=== PATIENT | female | born 1965 | race Caucasian/White ===

== ENCOUNTER 2016-06-13 20:37 | Emergency (ER) | payer BC, OTHER ==
[~2016-06-13] VITALS: Ht 167.6 cm; Wt 115.0 kg
[2016-06-13 20:44] VITALS: TEMP 36.9; Ht 167.6 cm; Wt 115.0 kg
[2016-06-13] MEDS ORDERED: SODIUM CHLORIDE 0.9% 1000ML 2,000 ML IV STA (21:02)
[2016-06-13 21:59] LABS: BASO % 0.1 %; BASO ABS # 0.01 K/uL (0-0.2); COMPLETE YES; EOS % 0.6 %; HEMATOCRIT 41.5 % (37-47); IG% 0.1 %; LYMPH % 31.8 %; LYMPH ABS # 2.25 K/uL (1.2-3.4); MEAN CELL VOLUME 90.4 fL (80-100); MEAN CORPUSCULAR HEMOGLOBIN 30.3 pg (25-34); MEAN CORPUSCULAR HGB CONC 33.5 g/dl (32-36); MEAN PLATELET VOLUME 12.9 fL (7.4-10.4); MONO % 12.4 %; PLATELET COUNT 164 K/uL (130-400); RED BLOOD COUNT 4.59 M/uL (4.2-5.4); WHITE BLOOD COUNT 7.07 K/uL (4.8-10.8)
[2016-06-13 22:15] LABS: ALT/SGPT 25 U/L (12-78); BLOOD UREA NITROGEN 4 mg/dl (7-18); BUN/CREATININE RATIO 4.9 (10-20); CARBON DIOXIDE 28 mmol/L (21-32); CHLORIDE 105 mmol/L (98-107); CREATININE 0.79 mg/dl (0.60-1.20); GLUCOSE 103 mg/dl (70-99); POTASSIUM 3.2 mmol/L (3.5-5.1); SODIUM 140 mmol/L (136-145)
[2016-06-13 22:18] LABS: ALKALINE PHOSPHATASE 82 U/L (45-117); AST/SGOT 20 U/L (15-37)
[2016-06-13 22:33] LABS: CALCIUM 9.1 mg/dl (8.5-10.1)
--- NOTE | 2016-06-13 22:47 | EMERGENCY ROOM VISIT NOTE ---
History First contact with patient: 20:53 Chief Complaint: DIARRHEA Stated Complaint: STOMACH BUG AND DIARRHEA History of Present Illness The patient is a 51 year old female who presents to the Emergency Room with complaints of profuse watery diarrhea for the past 4 days. The patient reports mild abdominal cramping. She denies any nausea or vomiting. She denies any recent foreign travel, consumption of undercooked foods or other sick contacts. She also denies any recent antibiotic use. The patient does work at the [employer], and cannot rule out the possibility of C. difficile diarrhea. She has had no fevers or chills. She denies any history of GI disease. She is status post cholecystectomy. She has noticed some mild central back discomfort, wondering if she may have injured her kidneys. She denies any chest pain, shortness of breath, sore throat or headache. She currently rates her discomfort a 6 out of 10. Review of Systems HEENT: Denies dizziness, visual problems, hearing loss, tinnitus. Denies difficulty swallowing or oral lesions. PULMONARY: Denies cough, shortness of breath, sputum production or hemoptysis. CARDIOVASCULAR: Denies chest pain, palpitations, dyspnea on exertion, orthopnea or peripheral edema. GASTROINTESTINAL: See history of present illness. GENITOURINARY: Denies dysuria, frequency, urgency or nocturia. NEUROLOGIC: Denies history of epilepsy, CVA, TIA or chronic headaches. MUSCULOSKELETAL: Denies history of joint tenderness/swelling. SKIN: Denies rashes or lesions. PSYCHIATRIC: Denies history of depression or mental illness. ENDOCRINE: Denies history of diabetes or thyroid disorders. Past Medical/Surgical History Surgical Problems: (1) History of cholecystectomy (2) History of hysterectomy Medical Problems: (1) Asthma (2) Bronchitis (3) Emphysema (subcutaneous) (surgical) resulting from a procedure (4) Pneumonia Surgical Problems: (1) History of delivery (2) History of cholecystectomy (3) History of hysterectomy Family History FH: cancer FH: diabetes mellitus FH: heart disease FH: hypertension FH: lung disease Social History Smoking Status: Never Smoker Alcohol Use: occasionally Marital Status: Occupation Status: employed Physical Exam Vital Signs Date Time Temp Pulse Resp B/P Pulse Ox O2 Delivery O2 Flow Rate FiO2 06/13/16 22:22 82 18 179/89 100 Room Air 06/13/16 20:44 36.9 74 16 144/77 97 Room Air Physical Exam CONSTITUTIONAL: Healthy and well nourished. Alert and oriented X 3 with positive affect. She does not look acutely or toxic, and does not appear in any significant distress or discomfort. HEENT: Normocephalic, atraumatic. Pupils equal, round and reactive. Ears and nares are clear. No scleral icterus or conjunctival injection/pallor. OROPHARYNX: Mucous membranes are dry. NECK: Full active range of motion without discomfort. RESPIRATORY: Clear to auscultation bilaterally with no wheezing, crackles, rhonchi or stridor. CARDIOVASCULAR: Regular rate and rhythm with no murmurs, rubs or gallops. GASTROINTESTINAL: Bowel sounds present in all quadrants. Patient has minimal and diffuse abdominal tenderness to palpation. Negative McBurney's point tenderness. No rigidity, guarding or rebound. Negative CVA tenderness. MUSCULOSKELETAL: Full range of motion of all joints without discomfort. INTEGUMENTARY: No rash or other significant dermatologic conditions noted. HEMATOLOGIC: No ecchymosis or petechiae. NEUROLOGIC: No focal neurologic deficits noted. Medical Decision & Procedures Laboratory Results 06/13/16 21:45 Red Blood Count 4.59, Mean Corpuscular Volume 90.4, Mean Corpuscular Hemoglobin 30.3, Mean Corpuscular Hemoglobin Concent 33.5, Mean Platelet Volume 12.9, Neutrophils (%) (Auto) 55.0, Lymphocytes (%) (Auto) 31.8, Monocytes (%) (Auto) 12.4, Eosinophils (%) (Auto) 0.6, Basophils (%) (Auto) 0.1, Neutrophils # (Auto ) 3.88, Lymphocytes # (Auto) 2.25, Monocytes # (Auto) 0.88, Eosinophils # (Auto ) 0.04, Basophils # (Auto) 0.01 06/13/16 21:45 Test 06/13/16 21:45 White Blood Count 7.07 K/uL (4.8-10.8) Red Blood Count 4.59 M/uL (4.2-5.4) Hemoglobin 13.9 g/dL (12.0-16.0) Hematocrit 41.5 % (37-47) Mean Corpuscular Volume 90.4 fL (80-100) Mean Corpuscular Hemoglobin 30.3 pg (25-34) Mean Corpuscular Hemoglobin Concent 33.5 g/dl (32-36) Platelet Count 164 K/uL (130-400) Mean Platelet Volume 12.9 fL (7.4-10.4) Neutrophils (%) (Auto) 55.0 % Lymphocytes (%) (Auto) 31.8 % Monocytes (%) (Auto) 12.4 % Eosinophils (%) (Auto) 0.6 % Basophils (%) (Auto) 0.1 % Neutrophils # (Auto) 3.88 K/uL (1.4-6.5) Lymphocytes # (Auto) 2.25 K/uL (1.2-3.4) Monocytes # (Auto) 0.88 K/uL (0.11-0.59) Eosinophils # (Auto) 0.04 K/uL (0-0.5) Basophils # (Auto) 0.01 K/uL (0-0.2) RDW Standard Deviation 47.2 fL (36.4-46.3) RDW Coefficient of Variation 14.2 % (11.5-14.5) Immature Granulocyte % (Auto) 0.1 % Immature Granulocyte # (Auto) 0.01 K/uL (0.00-0.02) Anion Gap 7.0 mmol/L (3-11) Est Creatinine Clear Calc Drug Dose 107.3 ml/min Estimated GFR () 99.8 Estimated GFR (Non- 86.1 BUN/Creatinine Ratio 4.9 (10-20) Calcium Level 9.1 mg/dl (8.5-10.1) Total Bilirubin 0.3 mg/dl (0.2-1) Direct Bilirubin < 0.1 mg/dl (0-0.2) Aspartate Amino Transf (AST/SGOT) 20 U/L (15-37) Alanine Aminotransferase (ALT/SGPT) 25 U/L (12-78) Alkaline Phosphatase 82 U/L (45-117) Total Creatine Kinase 64 U/L (26-192) Total Protein 7.5 gm/dl (6.4-8.2) Albumin 3.6 gm/dl (3.4-5.0) Lipase 102 U/L (73-393) The above labs were reviewed. The patient has a mild hypokalemia with potassium of 3.2. Otherwise remaining labs are grossly normal. LFTs and lipase are normal. The patient was unable to provide a stool sample. Medications Administered Medications (Trade) Dose Ordered Sig/[place] Route Start Time Stop Time Status Last Admin Dose Admin Sodium Chloride (Nss 1000ml) 2,000 ml @ 999 mls/hr Q2H1M STAT IV 06/13/16 21:02 06/13/16 23:02 06/13/16 21:45 999 MLS/HR ED Course Patient history and physical exam were performed. Nurse's notes were reviewed. Vital signs were reviewed and were normal. IV access was established, and labs were drawn. The patient was hydrated with 2 L of normal saline. She refused any analgesics or antiemetics. Review of labs shows mild hypokalemia, otherwise remaining labs are normal. The patient was unable to provide a stool sample for analysis. Upon final reevaluation, the patient reports feeling much better, is now finally able to "produce saliva", and requested discharge home. The patient was instructed to follow-up with her PCP in the next 2-3 days, especially if she has any persistent diarrhea. Return to the emergency department for any progressively worsening symptoms. The case the patient does have a bacterial infectious diarrhea, I did suggest that she not take any medicines for diarrhea. The patient was happy with plan of care, voiced understanding of all discharge instructions, and denied any pain or nausea at the time of discharge. Medical Decision See previous section. The patient was unable to provide a stool sample for analysis. She has mild hypokalemia, otherwise has no other significant abnormal labs. She is afebrile and has no leukocytosis. Her abdominal exam is benign. Impression Primary Impression: Diarrhea Additional Impression: Hypokalemia Departure Information Referrals Ananth Jeffries D.OLala (PCP) Patient Instructions My [facility] Problem Qualifiers Primary Impression: Diarrhea Diarrhea type: unspecified type Qualified Codes: R19.7 - Diarrhea, unspecified
[2016-06-13 23:00] LABS: MANUAL MICROSCOPIC REQUIRED? YES; URINE APPEARANCE CLEAR (CLEAR); URINE BILIRUBIN NEG (NEG); URINE COLOR YELLOW; URINE NITRITE NEG (NEG); URINE PH 5.5 (4.5-7.5); URINE SPECIFIC GRAVITY <= 1.005 (1.000-1.030); UROBILINOGEN NEG (NEG)
[2016-06-13 23:05] LABS: REVIEW REQ? NO
[2016-06-13 23:27] VITALS: BP 155/79; PULSE 82; O2SAT 99
[2016-06-14 00:16] LABS: URINE RBC 0-4 /hpf (0-4)
[2016-06-14 00:17] LABS: URINE BACTERIA NEG (NEG)
== END 2016-06-13 23:29 | disposition home or self-care (01) ==
LOC: C.EDB 20:39
DX: R19.7 Diarrhea, unspecified (principal); E87.6 Hypokalemia; J45.909 Unspecified asthma, uncomplicated; Z80.9 Family history of malignant neoplasm, unspecified; Z83.3 Family history of diabetes mellitus; Z82.49 Family history of ischemic heart disease and other diseases of the circulatory system; Z83.6 Family history of other diseases of the respiratory system

== ENCOUNTER → 2016-08-08 | Outpatient (CLI) | payer OTHER ==
--- NOTE | 2016-08-09 06:03 | PAP/PSG TECHNICIAN REPORT ---
[facility] Cam Milling Machine Operator Polysomnogram Report Study name: None Report date: 08/09/2016 Study date: 08/08/2016 Referring Physician: Bhumi Berg M.D. Name: DAWNA SANTOS Interpreting Physician: Santi Hirsch D.O. Date of : 1965 Cam Milling Machine Operator: Isabel Flores [facility]. Sex: Female Age: 51 Study Type: PSG Weight: 258 lbs Height: 51 years, Height 5' 6" BMI: 41.64 Medications: ALBUTEROL 90 MCG, ALBUTEROL SULFATE 0.083% SOLN, CETIRIZINE 10 MG, CLINDAMYCIN PHOSPHATE 1% LOTION, CROMOLYN 1% OPH SOLN, EPI-PEN, FLUTICASONE 50 MCG, GABAPENTIN 100 MG, IBUPROFEN 800 MG, HYDROCHLOROTHIAZIDE 25 MG, IPRATOPIUM BROMIDE, MOMETASONE FUROATE 220 MCG, MONTELUKAST 10 MG, OMEPRAZOLE 20 MG, PREDNISONE 5 MG, TRAMADOL 50 MG Patient History 51 yr-old female here for a baseline study. She has a history of snoring, witnessed apneas, morning headaches, and daytime sleepiness. Her [place] scale is 12. The test was started on room air. ETCO2 testing was not utilized during this study. Room 1 She requested to have a copy of the study sent to the [facility]. Parameters Monitored NPSG: E1-M2, E2-M1, Fp1-M2, Fp2-M1, F3-M2, F4-M2, F4-M1, C3-M2, C4-M2, C4-M1, O1-M2, O2-M2, O2-M1, T3-M2, T4-M1, P3-M2, P4-M1, CHIN1, CHIN2, HR, EKG, Legs, PFLOW, SNOR, FLOW, CFLOW, Tidal Volume, THOR, ABDO, SpO2, PLTH, CPRESS, ETCO2 Wave, ETCO2, pH Sleep Architecture Sleep Stages Time at Lights Off 10:42:28 PM STAGES Time (min.) TST (%) Time at Lights On 5:41:58 AM Wake 41.5 -- Total Recording Time (TRT) 419.50 min. N1 29.5 8 Total Sleep Period (TSP) 411.0 min. N2 245.5 65 Total Sleep Time (TST) 378.0min. N3 12.5 3 Awake Time 41.5 min. REM 90.5 24 Wake after Sleep Onset 33.0 min. Sleep Efficiency (SE) 90 % Sleep Onset Latency (JEAN) 8.5 min. Number of Stage 1 Shifts None Awakenings 13 Stage Changes 77 Number of REM periods 6 REM 90.5 24 REM Latency 70.0 min. NREM 287.5 76 Body Position Analysis Supine Right Left Side Prone Vertical Total Sleep Time (min.) 95.3 206.6 96.7 303.35 0.0 0.0 Total Sleep Time (%) 20% 55% 26% 80 0% N/A% Total Sleep Time REM (min.) 8.0 36.5 46.0 None 0.0 0.0 Total Sleep Time NREM (min.) 66.6 170.1 50.7 None 0.0 0.0 Intermittent Wake (min.) 20.7 14.5 6.3 None 0.0 0.0 Total Sleep Period (%) 21% None None None None None Arousals Myoclonus (PLM) * Events Count Index Events Count Index Spontaneous 12 2 Events Awake (PLMW) 83 120.0 Respiratory 25 3.8 Events Asleep w/ Arousal (PLMA) 25 4.0 PLM 25 4 Events Asleep w/o Arousal (PLMS) 134 21.3 Snoring 5 1 Total Asleep 159 25.2 Total 67 11 Total 242 35 Respiratory Analysis * CA OA MA CH H RERA Total Count 0 2 0 0 71 8 73 Index 0.0 0.3 0.0 0 11.3 1 12.9 Mean Duration 0.0 13.7 0.0 0.00 22.1 18.8 21.6 Longest Duration 0.0 15.1 0.0 0.00 0.0 20.5 52.4 Respiratory Event Summary Total Supine ~Supine Right Left Prone REM NREM Apneas Count 2 2 0 0 0 N/A 0 2 Index 0.3 2 0 0.0 0.0 N/A 0 0 Hypopneas (4% Desat) Count 71 18 53 28 25 N/A 28 43 Index 11.3 14.5 10 8.1 15.5 N/A 18.6 9.0 Apneas & All Hypopneas Count 73 20 53 28 25 N/A 28 45 Index 11.6 16 10 8 16 N/A 18.6 9.4 Respiratory Events (Garageman+All Hyp+RERA) Count 73 21 60 34 26 N/A 28 45 Index 12.9 17 12 9.9 16.1 N/A 19.9 10.6 Respiratory Related Arousal Count 25 21 19 13 6 N/A 4 20 Index 3.8 4 4 4 4 N/A 3 4 Snoring Analysis Supine Right Left Prone REM NREM Total Snore duration 56.0 min Snores count 425 1,478 266 N/A 410 1,759 2,169 Snore mean duration 1.5 Sec Snores index 342 429 165 N/A 271.8 367.1 344.3 TST with snoring (%) 14.8% Desaturation Event Summary: Minimum %SpO2 Event Count Mean/Min/Max Duration(sec.) Desaturation Index % Time In Bed > 90 93 29.2 / 7.5 / 59.8 15.4 87.5 86 - 90 4 29.1 / 10.0 / 48.0 4.8 12.1 81 - 85 0 N/A 0.0 0.4 76 - 80 0 N/A 0.0 0.0 71 - 75 0 N/A 0.0 0.0 66 - 70 0 N/A 0.0 0.0 61 - 65 0 N/A 0.0 0.0 56 - 60 0 N/A 0.0 0.0 51 - 55 0 N/A 0.0 0.0 < 50 0 N/A 0.0 0.0 Total REM NREM Awake <50% 0.0 min. 0.0 min. 0.0 min. 0.0 min. 51 - 60% 0.0 min. 0.0 min. 0.0 min. 0.0 min. 61 - 70% 0.0 min. 0.0 min. 0.0 min. 0.0 min. 71 - 80% 0.1 min. 0.0 min. 0.1 min. 0.0 min. 81 - 90% 51.7 min. 10.4 min. 40.5 min. 0.7 min. 91 - 100% 362.1 min. 80.1 min. 246.9 min. 35.1 min. Average 93 94 92 95 Minimum SpO2 79 82 79 90 Desaturation Event Index 13.3 23.2 10.2 14.5 # Desat. Events below 89% 21 10 11 N/A Time(%) with Saturation below 89% 2.5 1.3 1.2 0.0 Time(min.) with Saturation below 89% 10.5 5.6 5.0 0.0 Time (mins) REM (mins) NREM (mins) % of TST SpO2 Below 90% 51 17 N34 7.1 SpO2 Below 88% 12 0 0 1 Heart Rate Analysis Min (bpm) Max (bpm) Average (bpm) Awake 55 127 70 NREM 52 99 68 REM 59 81 67 Overall 52 99 68 Supplemental O2 Values Minimum O2 level: None Value Start Time End Time Cam Milling Machine Operator Comments Ms. Santos slept in the right, left, and supine positions. No cardiac arrhythmias were noted. PLMs were noted. No bruxism noted. Snoring was noted and scored as a 2 on a scale of 1 through 5. (0=no snoring, 5=snoring loud enough to be heard through a closed door or down the madden way) She awoke to use the restroom one time during the night. Ms. Santos stated that she slept poorly. The final report will be interpreted and signed by a sleep physician. The completed physician report will then be placed in the patient medical record. Therapy (cm H2O) 0 TIB (min.) 419.5 TST (min.) 378.0 Sleep Onset (min.) 8.5 REM Onset From Sleep (min.) 70.0 Sleep Efficiency % 90 Wakefulness (%) 10 Wakefulness (min.) 41.5 NREM 1 (%) 8 NREM 1 (min.) 29.5 NREM 2 (%) 65 NREM 2 (min.) 245.5 NREM 3 (%) 3 NREM 3 (min.) 12.5 REM (%) 24 REM (min.) 90.5 # Arousals 67 Arousal Index 11 # Snore 2,169 Snore Index 344.3 AHI 11.6 AHI Supine 16 AHI Non-Supine 10 NREM AHI 9.4 REM AHI 18.6 RDI 12.9 # Obstructive Apnea 2 # Central Apnea 0 # Mixed Apnea 0 # Hypopneas 71 RERAs 8 Total Respiratory Events 83 Time Below SpO2 89% (min.) 10.5 Mean NREM SpO2 (%) 92 Mean REM SpO2 (%) 94 Mean Sleep SpO2 (%) 93 Min NREM SpO2 (%) 79 Min REM SpO2 (%) 82 Position Supine (min.) 95.3 Position Non-supine (min.) 303.4 LM Index Sleep 25.2 LM Index NREM 26.7 LM Index REM 20.6 Mean Heart Rate (bpm) 68 Min Heart Rate (bpm) 52
--- NOTE | 2016-08-14 07:33 | POLYSOMNOGRAPH REPORT ---
CLINICAL DATA: The patient is a 51-year-old female with a BMI of 41.64. She has symptoms of snoring, observed apnea, morning headaches, and excessive daytime somnolence. Her [place] sleepiness score was 12 out of a possible 24. She is referred by Dr. Bhumi Berg of the [facility] in [place]. SLEEP ARCHITECTURE: The total sleep period was 411 minutes. The total sleep time was 378 minutes. The sleep efficiency was normal at 90%. The sleep latency was 8.5 minutes. Wake after sleep onset was 33 minutes. The REM latency was normal at 70 minutes. Sleep consisted of stage N1 8%, stage N2 65%, stage N3 3%, and stage REM 24%. AROUSAL DATA: The patient had a total of 67 arousals including 12 spontaneous, 25 respiratory, 25 PLM, and 5 snoring arousals. The arousal index was 11. PLM DATA: The patient had 159 periodic limb movements of sleep for an index of 25.2. There were 25 arousals associated with the limb movements for a PLM arousal index of 4.0. EKG: The underlying cardiac rhythm was normal sinus. No arrhythmia was seen. The cardiac rates ranged from 52-99 beats per minute with an average of 68 beats per minute. RESPIRATORY DATA: The patient had a total of 73 respiratory events including 2 obstructive apneas and 71 hypopneas. Hypopneas were scored according to have a 4% desaturation rule. The apnea hypopnea index was 11.6. This reflects mild sleep apnea. She also had 8 RERAs. The longest apnea was 15.1 seconds. The mean duration of hypopnea was 22.1 seconds. OXIMETRY DATA: The average saturation was 93%. The minimum saturation was 79%. The patient had a total of 12 minutes with saturations less than 88%. ROLLER CLEANER'S COMMENTS: The patient slept in the right, left, and supine positions. No cardiac arrhythmias were noted. PLMs were noted. No bruxism noted. Snoring was noted and scored as a 2 on a scale of 1 through 5. IMPRESSION: 1. Obstructive sleep apnea -- mild. 2. Periodic limb movement disorder. COMMENTS: The patient had mild sleep apnea as noted above. Her sleep efficiency was normal. Sleep architecture was normal. She does have a history of significant symptoms as noted above. Thus treatment likely is indicated. Although she had a moderate number of limb movements, there were relatively few arousals. The limb movement disorder likely does not need treatment at present. The sleep disordered breathing should be treated first. RECOMMENDATIONS: 1. It is advised that the patient be treated with nasal CPAP. This could be accomplished by an in-lab sleep titration. If so, she would need to be referred back for this. The alternative would be for treatment with an auto CPAP. 2. An alternative to nasal CPAP therapy would be treatment with an oral appliance. 3. Weight reduction is advised in light of the elevation of body mass index at 41.64. 4. If possible, the patient should avoid sleeping in the supine position as there typically are more respiratory events and snoring when supine. 5. The patient should be advised of the appropriate principles of sleep hygiene including having a regular sleep-wake schedule and allowing approximately 8 hours of sleep time per night.
== END | disposition home or self-care (01) ==
LOC: C.NEUR 21:00
PROVIDERS: ATTEND Family Medicine Adult Medicine
DX: R06.83 Snoring (principal)

== ENCOUNTER 2017-06-06 06:43 | Inpatient (IN) | payer BC, OTHER ==
[2017-05-12 12:58] VITALS: BMI 43.0
--- NOTE | 2017-05-12 13:09 | PAT Medication Instructions ---
Service Date May 12, 2017. Current Home Medication List Albuterol Sulf (Proventil 0.083% 2.5MG/3ML), 2.5 MG INH QID PRN for SOB/Wheezing Cetirizine Hcl (All Day Allergy), 0.5 TAB PO BID Epinephrine (Epipen), 0.3 MG IM UD Gabapentin (Neurontin), 100 MG PO HS Hydrochlorothiazide (Hctz), 25 MG PO QAM Ibuprofen (Motrin), 800 MG PO TID PRN for Pain Ipratropium [place] (Atrovent Hfa), 2 PUFFS INH QID PRN for SOB/Wheezing Omeprazole (Prilosec), 40 MG PO BID Tramadol (Ultram), 1 TAB PO TID Medication Instructions For Your Scheduled Surgery -Continue as directed: Epinephrine (Epipen), 0.3 MG IM UD -Contact your surgeon for instructions for: Ibuprofen (Motrin), 800 MG PO TID PRN for Pain - Hold the following medications the morning of surgery: Cetirizine Hcl (All Day Allergy), 0.5 TAB PO BID Hydrochlorothiazide (Hctz), 25 MG PO QAM - Take the following medications the morning of surgery with a sip of water: Albuterol Sulf (Proventil 0.083% 2.5MG/3ML), 2.5 MG INH QID PRN for SOB/ Wheezing (if needed, and bring it with you to the hospital) Ipratropium [place] (Atrovent Hfa), 2 PUFFS INH QID PRN for SOB/Wheezing (if needed) Omeprazole (Prilosec), 40 MG PO BID Tramadol (Ultram), 1 TAB PO TID - Take the following medications as scheduled the night before surgery: Albuterol Sulf (Proventil 0.083% 2.5MG/3ML), 2.5 MG INH QID PRN for SOB/ Wheezing (if needed) Cetirizine Hcl (All Day Allergy), 0.5 TAB PO BID Gabapentin (Neurontin), 100 MG PO HS Ipratropium [place] (Atrovent Hfa), 2 PUFFS INH QID PRN for SOB/Wheezing (if needed) Omeprazole (Prilosec), 40 MG PO BID Tramadol (Ultram), 1 TAB PO TID If you have any questions please call us at [phone] or [phone] or [phone]
--- NOTE | 2017-05-12 14:23 | DIAGNOSTIC IMAGING REPORT ---
CHEST 2 VIEWS ROUTINE CLINICAL HISTORY: PAT COMPARISON STUDY: No previous studies for comparison. FINDINGS: The bones soft tissues and hemidiaphragms are normal. The cardiomediastinal silhouette is normal. The lungs are clear. The pulmonary vasculature is normal. IMPRESSION: Negative chest. The above report was generated using voice recognition software. It may contain grammatical, syntax or spelling errors. Electronically signed by: Marck Martinez M.D. 05/12/2017 2:22 PM Dictated Date/Time: 05/12/2017 2:21 PM
[2017-05-12 14:26] LABS: BASO % 0.3 %; BASO ABS # 0.02 K/uL (0-0.2); EOS % 2.2 %; EOS ABS # 0.16 K/uL (0-0.5); HEMATOCRIT 38.2 % (37-47); HEMOGLOBIN 12.8 g/dL (12.0-16.0); LYMPH % 40.6 %; LYMPH ABS # 2.92 K/uL (1.2-3.4); MEAN CELL VOLUME 90.5 fL (80-100); MEAN CORPUSCULAR HEMOGLOBIN 30.3 pg (25-34); MEAN CORPUSCULAR HGB CONC 33.5 g/dl (32-36); MEAN PLATELET VOLUME 12.9 fL (7.4-10.4); MONO % 7.2 %; MONO ABS # 0.52 K/uL (0.11-0.59); NEUT % 49.7 %; NEUT ABS # 3.57 K/uL (1.4-6.5); PLATELET COUNT 171 K/uL (130-400); RED CELL DISTRIBUTION WIDTH CV 14.3 % (11.5-14.5); RED CELL DISTRIBUTION WIDTH SD 47.5 fL (36.4-46.3); WHITE BLOOD COUNT 7.19 K/uL (4.8-10.8)
[2017-05-12 14:33] LABS: ALBUMIN 3.7 gm/dl (3.4-5.0); CALCIUM 8.8 mg/dl (8.5-10.1); CREATININE 0.84 mg/dl (0.60-1.20); POTASSIUM 3.5 mmol/L (3.5-5.1)
[2017-05-12 14:36] LABS: PTT PATIENT 24.7 SECONDS (21.0-31.0)
[2017-05-13 07:10] LABS: HEMOGLOBIN A1C 5.5 % (4.5-5.6)
--- NOTE | 2017-05-28 08:15 | History and Physical ---
History & Physical Date May 28, 2017. Chief Complaint Right knee pain History of Present Illness The patient is a 52 year old female with complaints of with right knee pain. She has tried conservative therapy with minimal relief. She would like to proceed with scheduled surgery. Past Medical/Surgical History Medical Problems: (1) Asthma (2) Bronchitis (3) Emphysema (subcutaneous) (surgical) resulting from a procedure (4) Pneumonia Surgical Problems: (1) History of delivery (2) History of cholecystectomy (3) History of hysterectomy Additional History Hepatic Disease: No Endocrine Disorder: No Kidney Disease: No Hypertension: Yes Heart Disease: No Bleeding Tendencies: No Infectious Diseases: No Allergies Coded Allergies: Cephalexin (Verified Allergy, Unknown, rash, 05/12/17) Uncoded Allergies: ENVIRONMENTAL (Allergy, Unknown, sneezing water eyes, nasal congestion, ) Home Medications Scheduled Cetirizine Hcl (All Day Allergy), 0.5 TAB PO BID Epinephrine (Epipen), 0.3 MG IM UD Gabapentin (Neurontin), 100 MG PO HS Hydrochlorothiazide (Hctz), 25 MG PO QAM Omeprazole (Prilosec), 40 MG PO BID Tramadol (Ultram), 1 TAB PO TID Scheduled PRN Albuterol Sulf (Proventil 0.083% 2.5MG/3ML), 2.5 MG INH QID PRN for SOB/Wheezing Ibuprofen (Motrin), 800 MG PO TID PRN for Pain Ipratropium [place] (Atrovent Hfa), 2 PUFFS INH QID PRN for SOB/Wheezing Physical Examination Skin: warm/dry, no rash Eyes: normal inspection, EOMI ENT: normal ENT inspection Head: normocephalic, atraumatic Neck: supple, no adenopathy Respiratory/Chest: lungs clear, normal breath sounds Cardiovascular: regular rate, rhythm, no murmur Abdomen / GI: normal bowel sounds, non tender Extremities: normal inspection, + pertinent finding (Medial joint line tenderness, ligaments intact, ROM 0-90) Neurologic/Psych: no motor/sensory deficits, alert, oriented x 3 Diagnosis Primary osteoarthritis of right knee Plan of Treatment Patient is scheduled for a Right total knee arthroplasty. She has failed conservative therapy and would like to proceed with scheduled surgery. Risks and benefits to surgery were discussed with the patient. The patient understands these risks and wishes to proceed. All questions were answered to her satisfaction. She will be on ASA 81mg BID for DVT prophylaxis and would like to go home with OPPT.
[~2017-06-06] VITALS: Ht 167.6 cm; Wt 121.5 kg
[2017-06-06] VITALS (9 sets, daily range): BP systolic 113–153; BP diastolic 73–94; PULSE 70–82; TEMP 36.5–36.8; O2SAT 96–100; Ht 167.6 cm; Wt 121.5 kg
[2017-06-06] MEDS: TRANEXAMIC ACID INJ 1,000 MG x 2 Bags IV SCH ×4 (06:30→08:52)
[~2017-06-06 06:43] MED LIST: ACETAMINOPHEN 500 MG TAB PO SCH; ALBINS/ INH; ATRIN INH; BUPIVACAINE 0.25% 30 ML VIAL ONE; BUPIVACAINE 0.5 % 5 MG/1 ML PF 10ML VIAL ONE; CETI1CAP3 PO; CLINDAMYCIN 600 MG/54 ML D5W IV SCH; DEXAMETHASONE 4 MG TAB PO SCH; EPP3/2 IM; FAMOTIDINE 20 MG TAB PO SCH; GABA-112 PO; GABAPENTIN 900 MG PO SCH; HYDR25TA4 PO; IBUP-1428 PO; LACTATED RINGER'S 1000ML 1,000 ML IV SCH; LACTATED RINGER'S 1000ML 500 ML IV SCH; METOCLOPRAMIDE HCL 10 MG TAB PO SCH; PRLSR20 PO; ROPIVACAINE 5MG/ML 30 ML 150 MG, BUPIVACAINE 0.5% MPF INJ 30 ML, EpINEphrine HCL INJ 0.... INFIL SCH; TRAM-10 PO
[2017-06-06] MEDS ORDERED: MIDAZOLAM HCL 1 MG/ML 2ML VIAL ONE ×3 (06:57→09:18)
[2017-06-06] MEDS ORDERED: ORTHO JOINT ANESTHETIC ONE (07:01)
[2017-06-06] MEDS ORDERED: POVIDONE-IODINE OP SOLN 30 ML BTL ONE (07:02)
[2017-06-06] MEDS ORDERED: BACITRACIN 50000 UNIT VIAL ONE (07:02)
--- NOTE | 2017-06-06 07:11 | History & Physical Bridge Note ---
H&P Re-Evaluation Bridge Note: I have examined the patient, reviewed the History & Physical and in the interval since the performance of the History & Physical I have noted the following changes of clinical significance: No changes noted
[2017-06-06] MEDS ORDERED: ASPI-391 PO (07:21)
[2017-06-06] MEDS ORDERED: HYDROmorphone INJ 2 MG/ML SYR/VIAL IV PRN (08:45)
[2017-06-06] MEDS ORDERED: EpHEDrine SULFATE INJ 50 MG/ML AMP IV PRN (08:45)
[2017-06-06] MEDS ORDERED: KETOROLAC TROMETHAMINE 30 MG/ML VIAL IV. PRN (08:45)
[2017-06-06] MEDS ORDERED: PHENYLEPHRINE 100MCG/ML 5ML SYR IV PRN (08:45)
[2017-06-06] MEDS ORDERED: ATROPINE SULFATE 0.1 MG/ML 5ML SYR IV PRN (08:45)
[2017-06-06] MEDS ORDERED: ONDANSETRON INJ 2 MG/ML 2 ML VIAL IV PRN ×2 (08:45→11:15)
[2017-06-06] MEDS ORDERED: LIDOCAINE HCL 2% 2 ML VIAL (20MG/ML) ONE (09:26)
[2017-06-06] MEDS ORDERED: PROPOFOL IV EMULSION 10 MG/ML 20 ML VIAL IV ONE (09:26)
[2017-06-06] MEDS ORDERED: KETAMINE HCL INJ 50 MG/ML 10 ML VIAL ONE (09:28)
--- NOTE | 2017-06-06 10:35 | [facility] Operative Report ---
Operative Report Operative Date Jun 06, 2017. Pre-Operative Diagnosis Primary osteoarthritis of the right knee Post-Operative Diagnosis Primary osteoarthritis of the right knee Procedure(s) Performed Right Total Knee Arthroplasty, Cemented Surgeon Dr. Jairo Fonseca [facility] Clerk Surgeon(s) Denilson Holloway PA-C Estimated Blood Loss 20ml Findings As above Specimens A: Right knee bone and tissue Drains 2 Hemovac Anesthesia Type MAC Spinal Regional Complication(s) none Disposition Recovery Room / PACU Indications The patient is a 52-year-old female long-standing pain in the right knee. She [id number] in the medial compartment and significant arthritic change in the patellofemoral and lateral compartments as well. She has failed conservative measures including injection anti-inflammatories and rehab. She was to proceed with a right total knee arthroplasty. Description of Procedure Risks benefits and alternatives of surgery including but not limited to infection, DVT, pain, stiffness, need for surgery, damage to blood vessels, damage to nerves or risks of anesthesia were discussed with the patient and they wished to proceed. The patient was identified and the laterality was confirmed and marked. They received a preoperative antibiotic as well as a spinal anesthetic and an abductor canal block. A well-padded tourniquet was applied and then the limb was prepped and draped in standard manner with ChloraPrep. The limb was exsanguinated and the tourniquet was inflated. I made a standard anterior incision. I sharply incised the skin then utilized Bovie electrocautery as well as the aqua mantis to achieve hemostasis. I made a medial parapatellar arthrotomy and mobilized the patella laterally. I then excised the anterior horns of the medial and lateral meniscus as well as the infrapatellar fat pad. I elevated a portion of the MCL off of the tibia. I then pinned into place a patient-matched distal femoral cutting guide and made my distal femoral resection. I then pinned into place the 5 in 1 femoral cutting guide. I made my anterior, posterior and chamfer cuts. I then excised the cruciates and the remaining portions of the menisci. I then pinned into place a patient- matched tibial cutting guide and made my tibial resection. I then pinned into place the tibial plate a utilizing alignment chastity to confirm rotation. I then cut for the post. Utilizing a lamina rock worker and I then removed posterior osteophytes off the femur. I then placed a trial femur into position and cut for the trochlear component. I then sequentially trialed to size the polyethylene until there was good soft tissue balancing and range of motion. I then prepared the patella with a freehand cut utilizing sagittal saw. I sized and drilled for the patella. There was good tracking to the patella no lateral release was needed. All the trial components were removed. The deep tissues were anesthetized with an ortho mix solution. Then with Simplex HV with gentamicin cement, I cemented my definitive components. Definitive components, Drake and Nephew Naida 2: Femur 6 Tibia 3 Poly 9 Patella 29 round A betadine soak was performed. A deep drain was placed. The arthrotomy was closed with interrupted #1 Vicryl suture subcutaneous tissue was closed with interrupted 2-0 Vicryl suture. The skin was closed with with shadia. A Prevena wound VAC was placed. Sterile dressings were applied. All needle and sponge counts were correct at the end of the procedure patient was transferred to the PACU in stable condition without apparent complication. The PA-C was necessary for assistance with procedure for assistance in positioning, prepping, draping, retraction and closure. I attest to the content of the Intraoperative Record and any orders documented therein. Any exceptions are noted below.
[2017-06-06] MEDS ORDERED: MoRPHine SULFATE 2 MG/ML CARP IV PRN (11:15)
[2017-06-06] MEDS ORDERED: BISACODYL 10 MG SUPP PR PRN (11:15)
[2017-06-06] MEDS ORDERED: MAGNESIUM HYDROXIDE SUSP 30 ML UDC PO PRN (11:15)
[2017-06-06] MEDS ORDERED: IPRATROPIUM BROMIDE HFA INHALER INH PRN (11:15)
[2017-06-06] MEDS ORDERED: ALBUTEROL 0.083% NEBU SOLN 3 ML VIAL INH PRN (11:15)
[2017-06-06] MEDS ORDERED: ALUMINUM/MAGNESIUM/SIMETH (MAALOX MAX) 30 ML UDC PO PRN (11:15)
--- NOTE | 2017-06-06 11:37 | DIAGNOSTIC IMAGING REPORT ---
R KNEE 1 OR 2 VIEWS ROUTINE HISTORY: 52 years-old Female AP/LATERAL IN PACU RIGHT KNEE acute right knee pain. Status post right knee total joint arthroplasty COMPARISON: None available TECHNIQUE: 2 views of the right knee FINDINGS: Postoperative changes from right knee total joint arthroplasty and patella resurfacing. Anterior midline skin shadia are noted along with surgical drain and expected postsurgical soft tissue swelling and deep tissue air. Alignment is satisfactory. No periprosthetic fracture or retained foreign body. IMPRESSION: Right knee total joint arthroplasty and patellar resurfacing without complication identified. The above report was generated using voice recognition software. It may contain grammatical, syntax or spelling errors. Electronically signed by: Mauro Faust M.D. 06/06/2017 11:36 AM Dictated Date/Time: 06/06/2017 11:34 AM
--- NOTE | 2017-06-06 12:45 | Anesthesiology Progress Note ---
Anesthesia Post Op Note Date & Time Jun 06, 2017 at 12:44 Vital Signs Pain Intensity: 0 Vital Signs Past 12 Hours Date Time Temp Pulse Resp B/P (MAP) Pulse Ox O2 Delivery O2 Flow Rate FiO2 06/06/17 12:26 70 16 119/75 (90) 100 Room Air 06/06/17 12:00 99 Room Air 06/06/17 12:00 98 Room Air 06/06/17 11:58 36.6 71 19 121/73 (89) 99 Room Air 06/06/17 11:45 36.4 72 16 115/75 99 Room Air 06/06/17 11:30 36.4 80 16 126/72 99 Room Air 06/06/17 11:20 79 16 130/71 99 Room Air 06/06/17 11:10 78 16 122/62 99 Room Air 06/06/17 11:01 36.5 87 16 122/53 100 Oxymask 4 06/06/17 06:55 36.8 82 16 142/94 97 Room Air Notes Mental Status: alert / awake / arousable, participated in evaluation Pt Amnestic to Procedure: Yes Nausea / Vomiting: adequately controlled Pain: adequately controlled Airway Patency, RR, SpO2: stable & adequate BP & HR: stable & adequate Hydration State: stable & adequate Anesthetic Complications: no major complications apparent
[2017-06-06] MEDS: D5W AND 1/2NSS + 20MEQ KCL 1,000 ML IV SCH ×2 (13:20→23:01)
[2017-06-06] MEDS: FERROUS GLUCONATE 324 MG TAB PO SCH ×2 (13:21→17:45)
[2017-06-06] MEDS: ACETAMINOPHEN 500 MG TAB PO SCH ×2 (16:24→22:59)
[2017-06-06] MEDS: CLINDAMYCIN IV 600 MG in DEXTROSE 5% 50ML 50 ML IV SCH (16:42)
[2017-06-06] MEDS: OXYCODONE HCL IR 5 MG TAB (IMMEDIATE RELEASE) PO PRN ×2 (16:47→21:18)
[2017-06-06] MEDS ORDERED: SENNA 8.6 MG TAB PO SCH (21:00)
[2017-06-06] MEDS ORDERED: GABAPENTIN 100 MG CAP PO SCH (21:00)
[2017-06-06] MEDS: CeleBREX 200 MG CAP PO SCH (21:03)
[2017-06-06] MEDS: ASPIRIN 81 MG ECTAB PO SCH (21:04)
[2017-06-06] MEDS: DOCUSATE SODIUM 100 MG CAP PO SCH (21:04)
[2017-06-06] MEDS: CETIRIZINE HCL 10 MG TAB PO SCH (21:06)
[2017-06-07] MEDS: CLINDAMYCIN IV 600 MG in DEXTROSE 5% 50ML 50 ML IV SCH (01:15)
[2017-06-07] MEDS: TRAMADOL HCL 50 MG TAB PO PRN ×3 (01:31→11:19)
[2017-06-07 04:00] VITALS: BP 116/69; PULSE 79; TEMP 36.6; O2SAT 98
[2017-06-07 06:06] LABS: HEMATOCRIT 34.1 % (37-47); HEMOGLOBIN 11.4 g/dL (12.0-16.0); MEAN CELL VOLUME 89.5 fL (80-100); MEAN CORPUSCULAR HEMOGLOBIN 29.9 pg (25-34); MEAN CORPUSCULAR HGB CONC 33.4 g/dl (32-36); MEAN PLATELET VOLUME 13.1 fL (7.4-10.4); PLATELET COUNT 156 K/uL (130-400); RED CELL DISTRIBUTION WIDTH CV 14.2 % (11.5-14.5); RED CELL DISTRIBUTION WIDTH SD 46.6 fL (36.4-46.3); WHITE BLOOD COUNT 12.68 K/uL (4.8-10.8)
--- NOTE | 2017-06-07 06:36 | Orthopedic Progress Note ---
Orthopedic Progress Note Date of Service Jun 07, 2017. Subjective Post OP Day: 1 (right TKA) Reports: feeling well, pain controlled w PO medications, Denies: complaints, chest pain, SOB, nausea / vomiting, light headedness, calf pain Objective calves soft nontender, N/V intact, capillary refill less than 2 sec., dressing C /D/I, A&O x3, toes mobile, hemovac drainage (75cc/8 hours) Date Time Temp Pulse Resp B/P (MAP) Pulse Ox O2 Delivery O2 Flow Rate FiO2 06/07/17 04:00 36.6 79 16 116/69 (85) 98 Room Air 06/06/17 23:11 36.7 76 18 153/81 (105) 98 Room Air 06/06/17 19:53 36.6 82 18 125/75 (92) 96 Room Air 06/06/17 19:20 Room Air 06/06/17 15:36 Room Air 06/06/17 15:15 36.5 81 18 114/73 (87) 98 Room Air 06/06/17 14:00 77 16 131/74 (93) 97 Room Air 06/06/17 12:59 72 16 113/73 (86) 99 Room Air 06/06/17 12:26 70 16 119/75 (90) 100 Room Air 06/06/17 12:00 99 Room Air 06/06/17 12:00 98 Room Air 06/06/17 11:58 36.6 71 19 121/73 (89) 99 Room Air 06/06/17 11:45 36.4 72 16 115/75 99 Room Air 06/06/17 11:30 36.4 80 16 126/72 99 Room Air 06/06/17 11:20 79 16 130/71 99 Room Air 06/06/17 11:10 78 16 122/62 99 Room Air 06/06/17 11:01 36.5 87 16 122/53 100 Oxymask 4 06/06/17 06:55 36.8 82 16 142/94 97 Room Air Laboratory Results 24 Hours: Test 06/07/17 05:22 Hematocrit 34.1 % Hemoglobin 11.4 g/dL Assessment & Plan Assessment: POD #1 Right TKA pt/ot dvt proph with [facility]o/scd/asa plan for dc with OPPT @ [facility] Discharge Planning Discharge Planning: home with oppt DVT Prophylaxis: TEDs, SCDs, ASA
[2017-06-07 06:37] LABS: CALCIUM 8.5 mg/dl (8.5-10.1); CREATININE 0.73 mg/dl (0.60-1.20); POTASSIUM 4.1 mmol/L (3.5-5.1)
--- NOTE | 2017-06-07 06:38 | Discharge Instructions ---
Discharge Instructions Date of Service Jun 07, 2017. Admission Reason for Admission: Right Knee Osteoarthritis Discharge Discharge Diagnosis / Problem: right total knee replacement Discharge Goals Goal(s): Decrease discomfort, Improve function, Increase independence Activity Recommendations Activity Limitations: as noted below Weightbearing Status: Right weightbearing (as tolerated) . Instructions / Follow-Up Instructions / Follow-Up ACTIVITY RECOMMENDATIONS: SELF CARE INSTRUCTIONS AFTER TOTAL KNEE REPLACEMENT A. You may need to continue a physical therapy program after discharge from the hospital. There are several options available to you. Your doctor will assist you in selecting the best one for you. 1. An out-patient facility 2 to 3 times a week for therapy or home therapy. 2. Continue working on all exercises taught to you in the hospital. Your goals should be to increase bending of your knee to 90 degrees and beyond and to fully straighten your knee. B. You may progress at your own pace from walking with a walker or crutches to a cane; then to no assistive devices. C. Make walking a part of your daily routine. Be up as much as comfortable with rest periods throughout the day. Rest with leg elevation is very important. Use the ice wrap frequently for the first 3-4 weeks. D. There are no restrictions on activities. You may ride in a car, shop, participate in bank accountant and all social activities. E. Wear the long elastic stockings (SHEREE hose) 20 hours a day for 2 weeks after surgery. They can be removed several times a day for laundering and for a bath. F. You may shower, no tub baths until cleared by your doctor. SPECIAL CARE INSTRUCTIONS: VERY IMPORTANT TO READ AND REVIEW A. There are a few signs you need to watch for after you are home. Call [facility] [place] if you notice any of the followin. Increased severe knee pain. Some pain is expected especially when you exercise. 2. Increased swelling in your leg or knee; pain or swelling of the calf muscle in either lower leg. 3. Any fluid drainage from the incision. 4. Shortness of breath or chest pain. B. Please call [facility] at if you have any concerns or questions about your operation or recovery. The doctor or his nurse will return your call promptly. C. You must take antibiotics before dental work, bladder, bowel or other surgery. Your doctor will provide you with a permanent care to carry describing this precaution. IMPORTANT: * REMEMBER TO TAKE ASPIRIN, 81 MG, TWICE DAILY FOR 4 WEEKS UNLESS OTHERWISE DIRECTED. THIS IS YOUR BLOOD THINNER. * HIGH RISK PATIENTS MAY BE PRESCRIBED A STRONGER BLOOD THINNER. THIS WILL BE PROVIDED AT DISCHARGE. * CALL IF INCREASED PAIN, REDNESS, DRAINAGE OR FEVER GREATER THAT 101. * WEAR SHEREE HOSE 20 HOURS PER DAY FOR 2 WEEKS. * YOU MAY HAVE A LARGE BAND-AID LIKE DRESSING (SILVERON). THIS WILL REMAIN ON YOUR INCISION FOR 7 DAYS, THEN CAN BE REMOVED. IF INCISION IS LEAKING THROUGH DRESSING, CALL THE OFFICE . * Prevena- This is a large suction dressing covering your incision. This will help pull any excess drainage from the wound and allow your incision to heal properly. You may shower with this if you can keep the unit outside of the shower. If any bleeding or leakage is noted please call your doctor's office. This will remain on your incision for 7 days and then should be removed. This can be done yourself or by the home nursing staff if applicable. The entire unit is disposable once removed. Once removed, keep incision clean and dry. If redness or drainage is noted, please call your surgeon. FOLLOW UP VISIT: If appointment is not already scheduled: Please call [facility] [place] to make a follow-up appointment for 2 weeks after your surgery at . Current Hospital Diet Patient's current hospital diet: Regular Diet Discharge Diet Recommended Diet: Regular Diet Procedures Procedures Performed: Right Total Knee Arthroplasty, Cemented Pending Studies Studies pending at discharge: no Laboratory Results Hemoglobin A1c Test 05/12/17 13:45 Range/Units Estimated Average Glucose 111 mg/dl Hemoglobin A1c 5.5 4.5-5.6 % Medical Emergencies . Who to Call and When: Medical Emergencies: If at any time you feel your situation is an emergency, please call 911 immediately. . Non-Emergent Contact Non-Emergency issues call your: Primary Care Provider, Surgeon . "Provider Documentation" section prepared by Marck Ardon. . [place] Drug Monitoring Program Search Results: patient reviewed within database, no issues identified
[2017-06-07] MEDS ORDERED: CLC100 PO (06:44)
[2017-06-07] MEDS ORDERED: RXC5 PO (06:44)
[2017-06-07] MEDS ORDERED: ASPI-320 PO (06:44)
[2017-06-07] MEDS ORDERED: ONDA-170 PO (06:44)
[2017-06-07] MEDS ORDERED: CLB200 PO (06:44)
[2017-06-07] MEDS ORDERED: ACET-24 PO (06:44)
[2017-06-07] MEDS: OXYCODONE HCL IR 5 MG TAB (IMMEDIATE RELEASE) PO PRN ×2 (07:24→14:31)
[2017-06-07 07:36] VITALS: BP 144/88; PULSE 74; TEMP 36.9; O2SAT 99
[2017-06-07] MEDS: FERROUS GLUCONATE 324 MG TAB PO SCH ×2 (08:30→12:30)
[2017-06-07] MEDS ORDERED: PANTOprazole SOD 40 MG TAB PO SCH (09:00)
[2017-06-07] MEDS ORDERED: HYDROCHLOROTHIAZIDE 25 MG TAB PO SCH (09:00)
[2017-06-07] MEDS ORDERED: MULTIVITAMIN TAB PO SCH (09:00)
[2017-06-07] MEDS: ACETAMINOPHEN 500 MG TAB PO SCH (09:36)
[2017-06-07] MEDS: ASPIRIN 81 MG ECTAB PO SCH (09:37)
[2017-06-07] MEDS: CeleBREX 200 MG CAP PO SCH (09:37)
[2017-06-07] MEDS: DOCUSATE SODIUM 100 MG CAP PO SCH (09:38)
[2017-06-07] MEDS: CETIRIZINE HCL 10 MG TAB PO SCH (09:39)
[2017-06-07 12:43] VITALS: BP 144/88; PULSE 74; TEMP 36.9; O2SAT 99
--- NOTE | 2017-06-09 19:02 | DISCHARGE SUMMARY ---
DISCHARGE DIAGNOSIS: Degenerative joint disease, right knee. SECONDARY DIAGNOSES: Asthma, bronchitis, emphysema, pneumonia in the past, hypertension. CONSULTS: None. COMPLICATIONS: None. PROCEDURES: Right total knee arthroplasty performed by Dr. Fonseca on 06/06/2017. BRIEF HISTORY: As dictated in the history and physical. HOSPITAL SUMMARY: The patient was admitted on the above date, had the above noted surgery performed and started well. On her first postoperative day, she was feeling well, and pain was controlled. She had no complaints. Calves were soft and nontender. Neurovascularly intact. Dressings are clean, dry, and intact. Toes are mobile. Vital signs are stable. She is afebrile, and hemoglobin is 11.4. She was started on physical therapy protocol and continued on DVT prophylaxis and pain management. In physical therapy, she had achieved 85 degrees of flexion and was ambulating 625 feet and had gone up and down 2 steps and was progressing well with her physical therapy and was felt she could be discharged to home. For further review, please see chart. LAB AND X-RAY DATA: As per chart. DISCHARGE INSTRUCTIONS: Patient will be discharged home in satisfactory condition on 06/07/2017. DIET: Regular. ACTIVITY: Weightbearing as tolerated, right lower extremity. Follow TK instruction sheets and special care instructions as noted. Follow up with Dr. Fonseca in 2 weeks. DISCHARGE MEDICATIONS: Acetaminophen 1000 mg p.o. q.8 h., aspirin 81 mg p.o. b.i.d. for 30 days, Celebrex 200 mg p.o. b.i.d. for 30 days, Colace 100 mg p.o. b.i.d. for 10 days, Zofran 8 mg p.o. q.8 h. p.r.n. nausea, oxycodone 5-10 mg p.o. q.4 h. p.r.n. Resume home meds as listed. Stop taking Excedrin and ibuprofen.
== END 2017-06-07 14:35 | disposition home or self-care (01) | DRG 470 ==
LOC: C.ACU 06:43 → C.3E 07:30 → ENRESERV 11:34
PROVIDERS: ADMIT Orthopaedic Surgery; ATTEND Orthopaedic Surgery
PROC: 0SRC0J9 Replacement of Right Knee Joint with Synthetic Substitute, Cemented, Open Approach (ICD-10-PCS; principal; 2017-06-06 08:45)
DX: M17.11 Unilateral primary osteoarthritis, right knee (principal); J45.909 Unspecified asthma, uncomplicated; I10 Essential (primary) hypertension; Z87.01 Personal history of pneumonia (recurrent); Z90.49 Acquired absence of other specified parts of digestive tract; Z90.710 Acquired absence of both cervix and uterus; Z88.1 Allergy status to other antibiotic agents